=== PATIENT | female | born 1980 | race African-American/Black ===

== ENCOUNTER 2017-09-18 20:04 | Emergency (ER) | payer MEDICAID ==
[~2017-09-18] VITALS: Ht 165.1 cm; Wt 82.0 kg
[2017-09-18] MEDS ORDERED: TETANUS, DIPHTHERIA, PERTUSSIS VAC/PF 0.5ML (>7YR OLD) IM ONE (21:45)
[2017-09-18] MEDS ORDERED: IBUPROFEN 600MG TABLET PO ONE (21:45)
[2017-09-18 21:52] VITALS: BP 140/98
== END 2017-09-18 22:45 | disposition home or self-care (01) ==
LOC: ER 22:39
DX: L02.11 Cutaneous abscess of neck (principal); F17.200 Nicotine dependence, unspecified, uncomplicated
CPT/HCPCS: 90471; 90715; 99283